=== PATIENT | male | born 1955 | race Caucasian/White ===

== ENCOUNTER 2020-10-29 10:18 | Inpatient (IN) | payer OTHER ==
[2020-10-29 10:37] VITALS: BMI 29.0
[2020-10-29 12:41] LABS: HEMATOCRIT 40.5 % (35.4-49); HEMOGLOBIN 13.5 GM/dL (11.7-16.9); MCH 32.8 pg (25.7-33.7); MCHC 33.4 g/dl (32.0-35.9); MEAN CELL VOLUME 98.2 fl (80-96); MEAN PLT VOLUME 9.4 fl (7.5-11.1); PLATELET COUNT 227 K/MM3 (134-434); RBC 4.12 M/mm3 (4.00-5.60); RDW 15.4 % (11.9-15.9); WHITE BLOOD COUNT 8.4 K/mm3 (4.0-10.0)
[2020-10-29 12:57] LABS: POTASSIUM 5.3 mmol/L (3.5-5.1)
[2020-10-29 13:00] LABS: BLOOD UREA NITROGEN 82.2 mg/dL (7-18)
[2020-10-29 13:02] LABS: MAGNESIUM 3.2 mg/dL (1.8-2.4)
[2020-10-29 13:03] LABS: PHOSPHOROUS 3.8 mg/dL (2.5-4.9)
[2020-10-29 13:05] LABS: BILIRUBIN,TOTAL 0.3 mg/dL (0.2-1); TOT PROT 7.2 g/dl (6.4-8.2)
[2020-10-29 13:11] LABS: CREATININE 11.3 mg/dL (0.55-1.3)
[2020-10-29] MEDS ORDERED: SODIUM CHLORIDE 250 ML IV PRN (14:39)
[2020-10-29] MEDS ORDERED: CALCIUM ACETATE 667 MG CAPSULE (FP) PO SCH (17:30)
[2020-10-29] MEDS: SEVELAMER CARBONATE 800 MG TAB (FP) PO SCH (19:17)
[2020-10-29] MEDS: HEPARIN NA (PORCINE) 5,000 UNITS/ML 1ML VIAL SQ SCH (23:07)
[2020-10-30] MEDS: HEPARIN NA (PORCINE) 5,000 UNITS/ML 1ML VIAL SQ SCH ×3 (05:48→21:30)
[2020-10-30] MEDS: SEVELAMER CARBONATE 800 MG TAB (FP) PO SCH ×3 (08:26→17:39)
[2020-10-30 09:00] LABS: HEMATOCRIT 41.1 % (35.4-49); HEMOGLOBIN 13.5 GM/dL (11.7-16.9); MCHC 32.9 g/dl (32.0-35.9); MEAN CELL VOLUME 97.3 fl (80-96); MEAN PLT VOLUME 8.5 fl (7.5-11.1); PLATELET COUNT 252 K/MM3 (134-434); RBC 4.23 M/mm3 (4.00-5.60); RDW 14.9 % (11.9-15.9); WHITE BLOOD COUNT 6.7 K/mm3 (4.0-10.0)
[2020-10-30 09:03] LABS: INR 0.92 (0.83-1.09); PROTHROMBIN TIME (PATIENT) 11.3 SEC (9.7-13.0)
[2020-10-30 09:16] LABS: POTASSIUM 4.9 mmol/L (3.5-5.1)
[2020-10-30 09:28] LABS: CALCIUM 9.2 mg/dL (8.5-10.1); MAGNESIUM 2.7 mg/dL (1.8-2.4)
[2020-10-30 09:47] LABS: BLOOD UREA NITROGEN 51.2 mg/dL (7-18)
[2020-10-30 09:58] LABS: CREATININE 8.6 mg/dL (0.55-1.3)
[2020-10-30] MEDS ORDERED: amLODIPine BESYLATE 10 MG TABLET (FP) PO SCH (10:00)
[2020-10-30] MEDS ORDERED: SODIUM CHLORIDE 250 ML IV PRN (14:41)
[2020-10-30] MEDS ORDERED: FUROSEMIDE 40 MG TABLET (FP) PO SCH (14:45)
[2020-10-30] MEDS ORDERED: CALCITRIOL 0.25 MCG CAPSULE (FP) PO SCH (15:31)
[2020-10-31] MEDS: HEPARIN NA (PORCINE) 5,000 UNITS/ML 1ML VIAL SQ SCH ×2 (06:19→14:47)
[2020-10-31 15:17] LABS: HEMATOCRIT 38.7 % (35.4-49); HEMOGLOBIN 12.7 GM/dL (11.7-16.9); MCHC 32.9 g/dl (32.0-35.9); MEAN CELL VOLUME 97.4 fl (80-96); MEAN PLT VOLUME 9.2 fl (7.5-11.1); PLATELET COUNT 226 K/MM3 (134-434); RBC 3.97 M/mm3 (4.00-5.60); RDW 14.7 % (11.9-15.9); WHITE BLOOD COUNT 7.3 K/mm3 (4.0-10.0)
[2020-10-31 15:32] LABS: POTASSIUM 4.6 mmol/L (3.5-5.1)
[2020-10-31 15:34] LABS: CALCIUM 8.6 mg/dL (8.5-10.1)
[2020-10-31 15:51] LABS: BLOOD UREA NITROGEN 83.1 mg/dL (7-18)
[2020-10-31 15:57] LABS: CREATININE 12.2 mg/dL (0.55-1.3)
[2020-10-31 18:32] VITALS: BP 143/70; PULSE 98; TEMP 99.3
[2020-10-31 19:10] LABS: HEP B CORE AB, TOT Negative (Negative)
[2020-10-31] MEDS ORDERED: ATORVASTATIN CA 40 MG TABLET (FP) PO SCH (22:00)
== END 2020-10-31 18:42 | disposition home or self-care (01) | DRG 640 ==
LOC: JER 10:18 → JERBED 13:34 → J8W 20:40
PROVIDERS: ADMIT Internal Medicine; ATTEND Nurse Practitioner Family
PROC: 5A1D70Z Performance of Urinary Filtration, Intermittent, Less than 6 Hours Per Day (ICD-10-PCS; principal; 2020-10-29)
DX: E87.5 Hyperkalemia (principal); N18.6 End stage renal disease; I13.2 Hypertensive heart and chronic kidney disease with heart failure and with stage 5 chronic kidney disease, or end stage renal disease; E83.41 Hypermagnesemia; Z99.2 Dependence on renal dialysis; I50.9 Heart failure, unspecified; D63.1 Anemia in chronic kidney disease; N25.0 Renal osteodystrophy; Z86.19 Personal history of other infectious and parasitic diseases
CPT/HCPCS: 36415; 71045-TC-FY; 80048; 80053; 80061; 83036; 83721; 83735; 84100; 84443; 85027; 85610; 86704; 86705; 86706; 86707; 86708; 86709; 86803; 86850; 86900; 86901; 87340; 87350; 93005; 93010; 99285-25; C9803; J1644; U0003

== ENCOUNTER 2021-08-30 11:51 | Observation (INO) | payer OTHER ==
[2021-08-30 12:00] VITALS: BMI 32.0
[2021-08-30] MEDS ORDERED: SODIUM CHLORIDE 250 ML IV PRN (13:21)
[2021-08-30 13:45] LABS: BASO % 0.5 % (0-2.0); EOS % 6.2 % (0-4.5); HEMATOCRIT 40.6 % (35.4-49); HEMOGLOBIN 13.5 GM/dL (11.7-16.9); LYMPH % 21.8 % (8-40); MCH 32.9 pg (25.7-33.7); MCHC 33.3 g/dl (32.0-35.9); MEAN CELL VOLUME 98.8 fl (80-96); MEAN PLT VOLUME 7.8 fl (7.5-11.1); MONO % 11.2 % (3.8-10.2); NEUT % 60.3 % (42.8-82.8); PLATELET COUNT 265 10^3/uL (134-434); RBC 4.11 M/mm3 (4.00-5.60); RDW 15.3 % (11.9-15.9); WHITE BLOOD COUNT 7.5 K/mm3 (4.0-10.0)
[2021-08-30] MEDS ORDERED: amLODIPine BESYLATE 10 MG TABLET (FP) PO SCH (13:59)
[2021-08-30 14:04] LABS: CHLORIDE 107 mmol/L (98-107); SODIUM 140 mmol/L (136-145)
[2021-08-30 14:07] LABS: ALBUMIN 4.3 g/dl (3.4-5.0); ANION GAP 11 MMOL/L (8-16); BLOOD UREA NITROGEN 90.1 mg/dL (7-18); CALCIUM 8.9 mg/dL (8.5-10.1); CO2 21 mmol/L (21-32); MAGNESIUM 3.2 mg/dL (1.8-2.4)
[2021-08-30 14:08] LABS: GLUCOSE,RANDOM 87 mg/dL (74-106)
[2021-08-30 14:10] LABS: SGOT/AST 10 U/L (15-37); SGPT/ALT 24 U/L (13-61)
[2021-08-30 14:11] LABS: PHOSPHOROUS 3.7 mg/dL (2.5-4.9)
[2021-08-30 14:12] LABS: BILIRUBIN,TOTAL 0.6 mg/dL (0.2-1); TOT PROT 7.7 g/dl (6.4-8.2)
[2021-08-30 14:13] LABS: ALK PHOS 111 U/L (45-117)
[2021-08-30] MEDS ORDERED: INSULIN REGULAR HUMAN 100 UNITS/ML *VIAL IVPUSH ONE ×2 (14:14→14:18)
[2021-08-30] MEDS ORDERED: DEXTROSE 50%-WATER - 25 GM/50 ML VIAL IVPUSH ONE (14:16)
[2021-08-30 14:21] LABS: CREATININE 12.3 mg/dL (0.55-1.3)
[2021-08-30 14:29] LABS: HEPATITIS B SURFACE AG MATERN NON-REACTIVE (NONREACTIVE)
[2021-08-30] MEDS ORDERED: DEXTROSE 50%-WATER 25 GM/50 ML DISP.SYRIN ONE (14:32)
[2021-08-30] MEDS ORDERED: SEVELAMER CARBONATE 800 MG TAB (FP) PO SCH (17:30)
[2021-08-30 20:20] VITALS: BP 148/73; PULSE 82; TEMP 97.5
[2021-08-30] MEDS ORDERED: HEPARIN NA (PORCINE) 5,000 UNITS/ML 1ML VIAL SQ SCH (22:00)
[2021-08-30] MEDS ORDERED: ATORVASTATIN CA 40 MG TABLET (FP) PO SCH (22:00)
[2021-08-31] MEDS ORDERED: amLODIPine BESYLATE 10 MG TABLET (FP) PO SCH (10:00)
== END 2021-08-30 20:49 | disposition home or self-care (01) ==
LOC: JER 11:51 → INTOOBSV 13:39 → JERBED 13:39 → J5S 19:02
PROC: 3E033GC Introduction of Other Therapeutic Substance into Peripheral Vein, Percutaneous Approach (ICD-10-PCS; principal; 2021-08-30)
PROC: 3E013VG Introduction of Insulin into Subcutaneous Tissue, Percutaneous Approach (ICD-10-PCS; 2021-08-30)
DX: I13.2 Hypertensive heart and chronic kidney disease with heart failure and with stage 5 chronic kidney disease, or end stage renal disease (principal); Z91.15 Patient's noncompliance with renal dialysis; Z99.2 Dependence on renal dialysis; Z86.16 Personal history of COVID-19; E66.9 Obesity, unspecified; Z68.32 Body mass index [BMI] 32.0-32.9, adult; Q78.9 Osteochondrodysplasia, unspecified
CPT/HCPCS: 36415; 71046-TC-FY; 80053; 82550; 83735; 84100; 84484; 85025; 86706; 86850; 86900; 86901; 87340; 87517; 93005; 93010; 96374; 96375; 99285-25; C9803; G0378; U0003; U0005

== ENCOUNTER 2021-09-04 18:28 | Emergency (ER) | payer OTHER ==
[2021-09-04 19:25] VITALS: PULSE 75; TEMP 98.5; BMI 30.7
[2021-09-04 20:20] LABS: BASO % 0.6 % (0-2.0); EOS % 4.6 % (0-4.5); HEMATOCRIT 37.2 % (35.4-49); HEMOGLOBIN 12.7 GM/dL (11.7-16.9); LYMPH % 16.8 % (8-40); MCH 33.3 pg (25.7-33.7); MCHC 34.2 g/dl (32.0-35.9); MEAN CELL VOLUME 97.1 fl (80-96); MONO % 9.4 % (3.8-10.2); NEUT % 68.6 % (42.8-82.8); PLATELET COUNT 185 10^3/uL (134-434); RBC 3.83 M/mm3 (4.00-5.60); RDW 15.2 % (11.9-15.9); WHITE BLOOD COUNT 6.8 K/mm3 (4.0-10.0)
[2021-09-04 20:47] LABS: CHLORIDE 106 mmol/L (98-107); SODIUM 142 mmol/L (136-145)
[2021-09-04 20:52] LABS: ALBUMIN 4.1 g/dl (3.4-5.0); CALCIUM 8.3 mg/dL (8.5-10.1)
[2021-09-04 20:53] LABS: ANION GAP 9 MMOL/L (8-16); CO2 27 mmol/L (21-32); GLUCOSE,RANDOM 87 mg/dL (74-106); MAGNESIUM 2.2 mg/dL (1.8-2.4)
[2021-09-04 20:54] VITALS: BP 155/78
[2021-09-04 20:55] LABS: SGOT/AST 18 U/L (15-37); SGPT/ALT 21 U/L (13-61)
[2021-09-04 20:56] LABS: BILIRUBIN,TOTAL 0.6 mg/dL (0.2-1)
[2021-09-04 20:57] LABS: TOT PROT 7.2 g/dl (6.4-8.2)
[2021-09-04 20:58] LABS: ALK PHOS 92 U/L (45-117)
[2021-09-04 21:03] LABS: BLOOD UREA NITROGEN 35.9 mg/dL (7-18)
== END 2021-09-04 20:55 | disposition home or self-care (01) ==
LOC: JER 18:28
DX: R07.89 Other chest pain (principal)
CPT/HCPCS: 36415; 80053; 82550; 83735; 84484; 85025; 93005; 93010; 99284-25

== ENCOUNTER 2023-10-19 11:45 | Observation (INO) | payer OTHER ==
[2023-10-19 13:05] LABS: BASO % 0.7 % (0-2.0); EOS % 5.5 % (0-4.5); HEMATOCRIT 30.9 % (35.4-49); HEMOGLOBIN 10.4 GM/dL (11.7-16.9); LYMPH % 22.9 % (8-40); MCH 33.1 pg (25.7-33.7); MCHC 33.6 g/dl (32.0-35.9); MEAN CELL VOLUME 98.6 fl (80-96); MEAN PLT VOLUME 8.2 fl (7.5-11.1); MONO % 10.3 % (3.8-10.2); NEUT % 60.6 % (42.8-82.8); PLATELET COUNT 251 10^3/uL (134-434); RBC 3.14 M/mm3 (4.00-5.60); RDW 14.4 % (11.9-15.9); WHITE BLOOD COUNT 6.6 K/mm3 (4.0-10.0)
[2023-10-19 13:20] LABS: CHLORIDE 112 mmol/L (98-107); SODIUM 143 mmol/L (136-145)
[2023-10-19 13:22] LABS: CALCIUM 8.8 mg/dL (8.5-10.1)
[2023-10-19 13:23] LABS: ALBUMIN 3.8 g/dl (3.4-5.0); CO2 23 mmol/L (21-32); GLUCOSE,RANDOM 98 mg/dL (74-106)
[2023-10-19 13:26] LABS: SGPT/ALT 29 U/L (13-61)
[2023-10-19 13:28] LABS: BILIRUBIN,TOTAL 0.4 mg/dL (0.2-1); TOT PROT 6.7 g/dl (6.4-8.2)
[2023-10-19 13:29] LABS: ALK PHOS 99 U/L (45-117); SGOT/AST 11 U/L (15-37)
[2023-10-19 13:51] LABS: ANION GAP 8 mmol/L (4-13); CREATININE 11.7 mg/dL (0.55-1.3); POTASSIUM 6.6 mmol/L (3.5-5.1)
[2023-10-19 13:55] LABS: INR 0.88 (0.83-1.09); PROTHROMBIN TIME (PATIENT) 10.2 SEC (9.7-13.0)
[2023-10-19 13:57] LABS: ACTIVATED PTT 25.3 SECONDS (25.2-36.5)
[2023-10-19] MEDS ORDERED: INSULIN REGULAR HUMAN 100 UNITS/ML *VIAL IVPUSH ONE (14:30)
[2023-10-19] MEDS ORDERED: DEXTROSE 50%-WATER - 25 GM/50 ML VIAL IVPUSH ONE (14:31)
[2023-10-19] MEDS ORDERED: CALCIUM GLUCONATE 10% - 1,000 MG/10 ML VIAL IVPB ONE (14:37)
[2023-10-19] MEDS ORDERED: CALCIUM GLUCONATE 10% - 1,000 MG/10 ML VIAL ONE (14:47)
[2023-10-19] MEDS ORDERED: DEXTROSE 50%-WATER 25 GM/50 ML DISP.SYRIN ONE (14:48)
[2023-10-19] MEDS ORDERED: SODIUM ZIRCONIUM CYCLOSILICATE (LOKELMA) 10 GM PACKET ONE (14:48)
[2023-10-19] MEDS: SODIUM ZIRCONIUM CYCLOSILICATE (LOKELMA) 5 GM PACKET PO SCH (15:06)
[2023-10-19] MEDS ORDERED: SODIUM CHLORIDE 250 ML IV PRN ×2 (15:21→15:46)
[2023-10-19 16:46] VITALS: RESP 18
[2023-10-19 16:50] LABS: CHLORIDE 114 mmol/L (98-107); SODIUM 142 mmol/L (136-145)
[2023-10-19 16:51] LABS: BLOOD UREA NITROGEN 95.8 mg/dL (7-18); CALCIUM 8.5 mg/dL (8.5-10.1); CO2 21 mmol/L (21-32)
[2023-10-19 16:52] LABS: GLUCOSE,RANDOM 143 mg/dL (74-106)
[2023-10-19 16:53] LABS: ANION GAP 7 mmol/L (4-13); POTASSIUM 6.4 mmol/L (3.5-5.1)
[2023-10-19 17:08] LABS: CREATININE 12.3 mg/dL (0.55-1.3)
[2023-10-19 23:29] VITALS: BMI 30.7
[2023-10-20 07:43] LABS: BASO % 0.9 % (0-2.0); EOS % 4.1 % (0-4.5); HEMATOCRIT 30.1 % (35.4-49); LYMPH % 18.8 % (8-40); MCH 32.5 pg (25.7-33.7); MCHC 33.2 g/dl (32.0-35.9); MEAN PLT VOLUME 8.4 fl (7.5-11.1); MONO % 11.7 % (3.8-10.2); NEUT % 64.5 % (42.8-82.8); PLATELET COUNT 220 10^3/uL (134-434); RBC 3.07 M/mm3 (4.00-5.60); RDW 14.2 % (11.9-15.9); WHITE BLOOD COUNT 6.4 K/mm3 (4.0-10.0)
[2023-10-20 08:34] LABS: ALBUMIN 3.5 g/dl (3.4-5.0); BILIRUBIN,TOTAL 0.5 mg/dL (0.2-1); BLOOD UREA NITROGEN 36.3 mg/dL (7-18); CALCIUM 7.8 mg/dL (8.5-10.1); CREATININE 6.8 mg/dL (0.55-1.3); MAGNESIUM 2.1 mg/dL (1.8-2.4); PHOSPHOROUS 3.6 mg/dL (2.5-4.9); POTASSIUM 5.9 mmol/L (3.5-5.1); TOT PROT 6.1 g/dl (6.4-8.2)
[2023-10-20] MEDS: SODIUM ZIRCONIUM CYCLOSILICATE (LOKELMA) 5 GM PACKET PO SCH (10:36)
[2023-10-20] MEDS ORDERED: HEPARIN NA (PORCINE) 5,000 UNITS/ML 1ML VIAL IVPUSH ONE (11:45)
[2023-10-20] MEDS ORDERED: SODIUM CHLORIDE 250 ML IV PRN (11:45)
[2023-10-21 07:10] VITALS: BP 151/95; PULSE 80; TEMP 98.3
== END 2023-10-20 16:45 | disposition home or self-care (01) ==
LOC: JER 11:45 → JERBED 15:36 → J4W 20:59
PROVIDERS: ADMIT Internal Medicine; ATTEND Internal Medicine
PROC: 3E033VG Introduction of Insulin into Peripheral Vein, Percutaneous Approach (ICD-10-PCS; principal; 2023-10-19)
PROC: 3E033GC Introduction of Other Therapeutic Substance into Peripheral Vein, Percutaneous Approach (ICD-10-PCS; 2023-10-19)
DX: I13.2 Hypertensive heart and chronic kidney disease with heart failure and with stage 5 chronic kidney disease, or end stage renal disease (principal); N18.6 End stage renal disease; I12.0 Hypertensive chronic kidney disease with stage 5 chronic kidney disease or end stage renal disease; Z99.2 Dependence on renal dialysis; E87.5 Hyperkalemia; I25.10 Atherosclerotic heart disease of native coronary artery without angina pectoris; Z87.891 Personal history of nicotine dependence; N25.0 Renal osteodystrophy; Z49.31 Encounter for adequacy testing for hemodialysis
CPT/HCPCS: 36415; 71046-TC-FY; 80048; 80053; 82962; 83735; 84100; 85025; 85610; 85730; 86480; 86704; 86705; 86707; 87340; 87350; 87517; 87522; 93005; 93010; 96374; 96375; 99285-25; G0378; J1644

== ENCOUNTER 2024-08-30 20:55 | Inpatient (IN) | payer OTHER ==
[2024-08-30 22:49] LABS: BASO % 0.6 % (0-2.0); EOS % 7.8 % (0-4.5); HEMATOCRIT 33.6 % (35.4-49); LYMPH % 11.9 % (8-40); MCH 32.9 pg (25.7-33.7); MCHC 32.8 g/dl (32.0-35.9); MEAN CELL VOLUME 100.1 fl (80-96); MONO % 12.2 % (3.8-10.2); NEUT % 67.5 % (42.8-82.8); PLATELET COUNT 207 10^3/uL (134-434); RBC 3.35 M/mm3 (4.00-5.60); RDW 14.1 % (11.9-15.9); WHITE BLOOD COUNT 6.5 K/mm3 (4.0-10.0)
[2024-08-30 23:13] LABS: CHLORIDE 111 mmol/L (98-107); SODIUM 142 mmol/L (136-145)
[2024-08-30 23:15] LABS: CALCIUM 8.9 mg/dL (8.5-10.1)
[2024-08-30 23:16] LABS: ALBUMIN 3.4 g/dl (3.4-5.0); CO2 21 mmol/L (21-32); GLUCOSE,RANDOM 123 mg/dL (74-106); MAGNESIUM 3.1 mg/dL (1.8-2.4)
[2024-08-30 23:19] LABS: SGOT/AST 11 U/L (15-37); SGPT/ALT 17 U/L (13-61)
[2024-08-30 23:20] LABS: BILIRUBIN,TOTAL 0.4 mg/dL (0.2-1); PHOSPHOROUS 2.7 mg/dL (2.5-4.9)
[2024-08-30 23:22] LABS: ALK PHOS 83 U/L (45-117)
[2024-08-30 23:37] LABS: ANION GAP 10 mmol/L (4-13); CREATININE 12.2 mg/dL (0.55-1.3); POTASSIUM 7.2 mmol/L (3.5-5.1)
[2024-08-31] MEDS: DEXTROSE 50%-WATER - 25 GM/50 ML VIAL IVPUSH ONE (01:04)
[2024-08-31] MEDS: CALCIUM GLUCONATE 10% - 1,000 MG/10 ML VIAL IVPB ONE (01:04)
[2024-08-31] MEDS: INSULIN REGULAR HUMAN 100 UNITS/ML *VIAL IVPUSH ONE ×2 (01:04→09:41)
[2024-08-31] MEDS: ALBUTEROL SO4 0.083% IH SOL 2.5 MG/3 ML VIAL.NEB. NEB ONE ×4 (01:04→10:14)
[2024-08-31] MEDS: SODIUM ZIRCONIUM CYCLOSILICATE (LOKELMA) 5 GM PACKET PO ONE (01:05)
[2024-08-31] MEDS ORDERED: DEXTROSE 50%-WATER 25 GM/50 ML DISP.SYRIN ONE (01:06)
[2024-08-31] MEDS ORDERED: CALCIUM GLUC IN NACL, ISO-OSM 1 GM/50 ML BAG IVPB ONE (01:06)
[2024-08-31] MEDS ORDERED: INSULIN REGULAR HUMAN 100 UNITS/ML *VIAL ONE (01:07)
[2024-08-31] MEDS ORDERED: SODIUM ZIRCONIUM CYCLOSILICATE (LOKELMA) 10 GM PACKET ONE (01:07)
[2024-08-31 03:18] LABS: VENOUS BASE EXCESS -6.7 mmol/L (-2-2); VENOUS O2 SATURATION 90.6 % (70-80); VENOUS PCO2 35.9 mmHg (38-52); VENOUS PH 7.33 (7.310-7.410)
[2024-08-31 03:37] LABS: CHLORIDE 110 mmol/L (98-107); SODIUM 141 mmol/L (136-145)
[2024-08-31 03:40] LABS: CALCIUM 9.4 mg/dL (8.5-10.1); CO2 21 mmol/L (21-32); GLUCOSE,RANDOM 52 mg/dL (74-106)
[2024-08-31 03:46] LABS: ANION GAP 10 mmol/L (4-13); BLOOD UREA NITROGEN 117.6 mg/dL (7-18); CREATININE 12.5 mg/dL (0.55-1.3); POTASSIUM 6.4 mmol/L (3.5-5.1)
[2024-08-31] MEDS: HEPARIN NA (PORCINE) 5,000 UNITS/ML 1ML VIAL SQ ONE ×2 (03:50→06:01)
[2024-08-31 05:45] VITALS: BMI 28.3
[2024-08-31] MEDS: SODIUM ZIRCONIUM CYCLOSILICATE (LOKELMA) 5 GM PACKET PO SCH (06:00)
[2024-08-31] MEDS: SEVELAMER CARBONATE 800 MG TAB (FP) PO SCH (06:00)
[2024-08-31] MEDS: REMDESIVIR 200 MG in SODIUM CHLORIDE 250 ML IVPB ONE (06:00)
[2024-08-31 08:00] LABS: BASO % 0.6 % (0-2.0); EOS % 2.4 % (0-4.5); HEMATOCRIT 33.7 % (35.4-49); LYMPH % 8.7 % (8-40); MCH 32.8 pg (25.7-33.7); MCHC 32.5 g/dl (32.0-35.9); MEAN PLT VOLUME 8.5 fl (7.5-11.1); MONO % 9.6 % (3.8-10.2); NEUT % 78.7 % (42.8-82.8); PLATELET COUNT 218 10^3/uL (134-434); RBC 3.34 M/mm3 (4.00-5.60); RDW 13.9 % (11.9-15.9); WHITE BLOOD COUNT 8.3 K/mm3 (4.0-10.0)
[2024-08-31 08:13] LABS: CHLORIDE 108 mmol/L (98-107); SODIUM 140 mmol/L (136-145)
[2024-08-31 08:26] LABS: CALCIUM 8.9 mg/dL (8.5-10.1)
[2024-08-31 08:27] LABS: ALBUMIN 3.3 g/dl (3.4-5.0); CO2 19 mmol/L (21-32); GLUCOSE,RANDOM 81 mg/dL (74-106)
[2024-08-31 08:30] LABS: SGOT/AST 8 U/L (15-37); SGPT/ALT 17 U/L (13-61)
[2024-08-31 08:31] LABS: BILIRUBIN,TOTAL 0.6 mg/dL (0.2-1); TOT PROT 5.7 g/dl (6.4-8.2)
[2024-08-31 08:33] LABS: ALK PHOS 78 U/L (45-117)
[2024-08-31 08:41] LABS: ANION GAP 12 mmol/L (4-13); CREATININE 12.8 mg/dL (0.55-1.3); POTASSIUM 7.5 mmol/L (3.5-5.1)
[2024-08-31] MEDS ORDERED: ALBUTEROL SO4 0.083% IH SOL 2.5 MG/3 ML VIAL.NEB. NEB ONE (09:38)
[2024-08-31] MEDS: CALCIUM GLUCONATE 10% - 1,000 MG/10 ML VIAL IVPUSH ONE (09:41)
[2024-08-31] MEDS: DEXTROSE 50%-WATER 25 GM/50 ML DISP.SYRIN IVPUSH ONE (09:42)
[2024-08-31] MEDS: PARoxetine HCL 10 MG TABLET PO SCH (09:42)
[2024-08-31] MEDS: amLODIPine BESYLATE 10 MG TABLET (FP) PO SCH (09:42)
[2024-08-31] MEDS ORDERED: SODIUM ZIRCONIUM CYCLOSILICATE (LOKELMA) 5 GM PACKET PO SCH (10:00)
[2024-08-31] MEDS ORDERED: SODIUM CHLORIDE 250 ML IV PRN (11:09)
[2024-08-31 18:31] VITALS: RESP 20
[2024-08-31 21:43] LABS: POTASSIUM 5.3 mmol/L (3.5-5.1)
[2024-08-31 21:45] LABS: CALCIUM 8.4 mg/dL (8.5-10.1)
[2024-08-31 21:49] LABS: CREATININE 6.9 mg/dL (0.55-1.3)
[2024-08-31 21:51] LABS: BLOOD UREA NITROGEN 43.6 mg/dL (7-18)
[2024-08-31] MEDS: ATORVASTATIN CA 40 MG TABLET (FP) PO SCH (22:00)
[2024-08-31 23:30] VITALS: BP 164/81; PULSE 103; TEMP 99.7
[2024-09-01] MEDS ORDERED: REMDESIVIR 100 MG in SODIUM CHLORIDE 250 ML IVPB SCH (10:00)
[2024-09-01] MEDS ORDERED: NIFEdipine E.R. 30 MG TABLET PO SCH (10:00)
[2024-09-12 19:26] LABS: POTASSIUM 3.6 mmol/L (3.5-5.1)
[2024-09-12 19:29] LABS: BLOOD UREA NITROGEN 21.9 mg/dL (7-18)
[2024-09-12 19:32] LABS: CREATININE 3.2 mg/dL (0.55-1.3)
== END 2024-08-31 23:30 | disposition left against medical advice (07) | DRG 682 ==
LOC: JER 20:55 → JERBED 08-31 00:46 → J4W 08-31 02:49
PROVIDERS: ADMIT Internal Medicine; ATTEND Internal Medicine
PROC: 5A1D70Z Performance of Urinary Filtration, Intermittent, Less than 6 Hours Per Day (ICD-10-PCS; principal; 2024-08-31)
PROC: XW033E5 Introduction of Remdesivir Anti-infective into Peripheral Vein, Percutaneous Approach, New Technology Group 5 (ICD-10-PCS; 2024-08-31)
DX: I12.0 Hypertensive chronic kidney disease with stage 5 chronic kidney disease or end stage renal disease (principal); N18.6 End stage renal disease; U07.1 COVID-19; Z99.2 Dependence on renal dialysis; E78.5 Hyperlipidemia, unspecified; I25.10 Atherosclerotic heart disease of native coronary artery without angina pectoris; E87.5 Hyperkalemia; E87.8 Other disorders of electrolyte and fluid balance, not elsewhere classified
CPT/HCPCS: 0241U-QW; 36415; 80048; 80053; 82565; 82803; 83735; 84100; 84132; 84484; 84520; 85025; 87340; 93005; 93010; 94640; 99285-25; J0248; J1644